=== PATIENT | female | born 1985 | race Two or more races ===

== ENCOUNTER 2016-07-08 15:25 | Emergency (ER) | payer OTHER ==
[~2016-07-08] VITALS: Ht 165.1 cm; Wt 65.0 kg
[2016-07-08] MEDS ORDERED: KETOROLAC 60MG/2ML VIAL IM ONE (19:30)
[2016-07-08] MEDS ORDERED: ACETAMINOPHEN 325MG TABLET PO ONE (19:45)
[2016-07-08 20:22] VITALS: BP 118/77
== END 2016-07-08 22:14 | disposition home or self-care (01) ==
LOC: ER 18:15
DX: M25.511 Pain in right shoulder (principal); M79.601 Pain in right arm; M25.561 Pain in right knee; Z88.6 Allergy status to analgesic agent; W10.8XXA Fall (on) (from) other stairs and steps, initial encounter; Y92.099 Unspecified place in other non-institutional residence as the place of occurrence of the external cause
CPT/HCPCS: 73030; 73060; 73562; 81025; 96372; 99284; J1885; A4565